=== PATIENT | female | born 1985 | race Two or more races ===

== ENCOUNTER 2021-02-22 18:00 | Emergency (ER) | payer OTHER ==
[~2021-02-22] VITALS: Ht 157.5 cm; Wt 54.4 kg
[2021-02-22] MEDS ORDERED: PROTONIX40 MG PO (22:06)
== END 2021-02-22 22:25 | disposition home or self-care (01) ==
LOC: ER 18:00
DX: R10.13 Epigastric pain (principal); K29.00 Acute gastritis without bleeding